=== PATIENT | female | born 1990 | race Caucasian/White ===

== ENCOUNTER 2016-11-21 14:08 | Emergency (ER) | payer MEDICAID ==
[2016-11-21] MEDS ORDERED: ALPRAZolam 0.25 MG Tab PO ONE (14:44)
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
[2016-11-21 15:31] VITALS: BP 122/83
== END 2016-11-21 15:00 | disposition home or self-care (01) ==
LOC: VM.ED 14:08
DX: F41.0 Panic disorder [episodic paroxysmal anxiety] (principal)
CPT/HCPCS: 99283; A9270